=== PATIENT | female | born 2000 | race African-American/Black ===

== ENCOUNTER → 2020-09-02 12:06 | Outpatient (CLI) | payer OTHER, SELFPAY ==
--- NOTE | ~2020-09-02 | US_ITS ---
EXAMINATION: US pelvic complete EXAM DATE: 09/02/2020 13:10 INDICATION: R39.15 - Urgency of urination. TECHNIQUE: Pelvic transabdominal sonogram was performed. There are multiple grayscale and Doppler im ages available for interpretation. There is no prior study for comparison. FINDINGS: Uterus measures 6.8 x 2.8 x 4.7 cm, and is morphologically normal. Endometrial stripe gwendolyn sures 5 mm, within normal limits. There is no free pelvic fluid. Right adnexa: The ovary measures 2.0 x 1.8 x 1.8 cm and is morphologically normal. Ovarian vascular f low confirmed. Left adnexa: The ovary measures 2.0 x 1.8 x 1.8 cm and is morphologically normal. Ovarian vascular fl ow confirmed. IMPRESSION: 1. Unremarkable pelvic ultrasound exam. Reviewed, dictated and finalized at location A. [employer] WORK[employer]
== END ==
PROVIDERS: PCP Internal Medicine; Visit Provider Internal Medicine
DX: R10.2 Pelvic and perineal pain (principal); R39.15 Urgency of urination
CPT/HCPCS: 76856

== ENCOUNTER 2022-11-03 12:05 | Day surgery (SDC) | payer OTHER, SELFPAY ==
[2022-10-05 09:54] VITALS: BMI 23.6
--- NOTE | 2022-11-03 10:13 | P.PNAN_ITS ---
Anes - Initial Pre Proc Eval Procedure: Operation Date: 11/03/22 13:30 Proposed Procedures p Diagnostic Colonoscopy - Rod Traore MD Date/Time: 11/03/22 10:13 Surgeon: Rod Traore MD Pre Op Diagnosis: Mucus in stool Patient Data Age: 22 Gender: F Height: 1.68 m Weight: 66.5 kg Allergies Allergy/AdvReac Type Severity Reaction Status Date / Time Sulfa (Sulfonamide Allergy Unknown HIVES Verified 11/03/22 12:25 Antibiotics) Home Medications Medication Instructions Recorded Confirmed Type No Home Medications 10/05/22 10/05/22 History Patient hx anesthesia problems: none Family hx anesthesia problems: none Results Review: All pre-operative results and documents have been reviewed as part of the pre- operative evaluation. [facility] Past Medical History Medical History BMI 22.0-22.9, adult Change in mole Elevated CPK Encounter to establish care Hospital discharge follow-up On continuous churn buttermaker drug therapy Pelvic pain Personal history of COVID-19 Urinary urgency Social History Social History Smoking status: Never smoker Alcohol intake: current Substance use: unknown Substance use type: unknown Living arrangements: with family Spiritual care concerns: No Anes - Eval Final PreProcedure Day of Procedure 11/03/22 10:13 Patient weight: normal Heart: regular rate and rhythm Lungs: clear to auscultation and normal air movement Airway: Mallampati scale class II Neurological: alert and oriented Last oral intake: >/= 8 hours ASA classification: I Emergent: no Anesthetic plan: proceed Anesthesia type and monitoring: general GIVS Results Review: All pre-operative results and documents have been reviewed as part of the pre- operative evaluation. Informed Consent: The patient's anesthetic plan and its attendant risks and benefits were discussed with the patient/family/POA. Questions were solicited and answers provided to the satisfaction of the patient/family/POA.
[2022-11-03 12:25] VITALS: BP 122/70; PULSE 87; RESP 20; TEMP 36.7; O2SAT 100
[2022-11-03] MEDS: LACTATED RINGERS 1,000 ML 150 ML IV CONT (12:51)
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
[2022-11-03 13:30] VITALS: BP 114/73; PULSE 80; RESP 14; O2SAT 100
[2022-11-03 13:40] VITALS: BP 108/82; PULSE 76; RESP 16; O2SAT 100
[2022-11-03 13:50] VITALS: BP 122/74; PULSE 64; RESP 16; O2SAT 100
--- NOTE | 2022-11-03 13:50 | SUR.PHASEII ---
PT AWAKE AND ALERT. EATING AND DRINKING. DENIES PAIN OR NAUSEA. MOTHER AT BEDSIDE.
--- NOTE | 2022-11-03 14:04 | SUR.PHASEII ---
1400; PT ASKED TO SPEAK TO DR ROBERSON AGAIN. 1403; DR ROBERSON IN ROOM SPEAKING TO PT AND MOTHER.
--- NOTE | 2022-11-03 15:29 | WPDANESPN ---
Anes - Prog Note Post-Op Date/Time: 11/03/22 15:29 Cardiovascular status: normal Respiratory status: normal Airway patency: baseline Mental status: baseline Post-Op hydration status: normal Vital Signs: Last Vital Signs Temp 36.7 C 11/03/22 12:25 Pulse 64 11/03/22 13:50 Resp 16 11/03/22 13:50 BP 122/74 11/03/22 13:50 Pulse Ox 100 11/03/22 13:50 O2 Del Method Room Air 11/03/22 13:50 Pain Score (VAS): 0 I/O: Intake & Output 11/02/22 11/03/22 11/03/22 23:59 07:59 15:59 Intake Total 400 Balance 400 Post-procedural complaints: none Patient Feedback: Patient satisfied with anesthetic care.
== END 2022-11-03 14:07 | disposition home or self-care (01) ==
PROVIDERS: Visit Provider Internal Medicine Gastroenterology
PROC: 0DJD8ZZ Inspection of Lower Intestinal Tract, Via Natural or Artificial Opening Endoscopic (ICD-10-PCS; CPT 45378; principal; 2022-11-03 13:30)
DX: R19.5 Other fecal abnormalities (principal)
CPT/HCPCS: 45378

== ENCOUNTER 2024-02-17 09:37 | Outpatient (CLI) | payer OTHER, SELFPAY ==
--- NOTE | ~2024-02-17 | US_ITS ---
US breast BI limited 02/17/2024 10:30 Indication: Left breast pain for one month Procedure: High-resolution Limited left breast ultrasound Comparison: No prior studies for comparison. Findings: At 6:00 near the nipple there is a 6 mm oval parallel oriented hypoechoic mass with low lev el internal echoes. No other masses are identified Impression: 1: Probable benign 6 mm left breast mass at 6:00 near the nipple. BI-RADS CATEGORY 3-PROBABLY BENIGN FINDING RECOMMENDATION: 6 month follow-up Limited left breast ultrasound recommended. Reviewed, dictated and finalized at location B. Impression: 1: Probable benign 6 mm left breast mass at 6:00 near the nipple. BI-RADS CATEGORY 3-PROBABLY BENIGN FINDING RECOMMENDATION: 6 month follow-up Limited left breast ultrasound recommended.
== END 2024-02-17 09:38 | disposition home or self-care (01) ==
PROVIDERS: Visit Provider Nurse Practitioner
DX: R92.8 Other abnormal and inconclusive findings on diagnostic imaging of breast (principal)
CPT/HCPCS: 76642

== ENCOUNTER 2025-02-16 13:43 | Emergency (ER) | payer OTHER, SELFPAY ==
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
[2025-02-16 13:53] VITALS: BP 130/75; PULSE 55; RESP 16; TEMP 36.8; O2SAT 100
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
== END 2025-02-16 15:20 | disposition home or self-care (01) ==
PROVIDERS: Emergency Provider Nurse Practitioner
DX: M54.50 Low back pain, unspecified (principal); H00.014 Hordeolum externum left upper eyelid; V43.52XA Car driver injured in collision with other type car in traffic accident, initial encounter
CPT/HCPCS: 72110; 99213; G0463